=== PATIENT | female | born 1950 | race Two or more races ===

== ENCOUNTER 2023-05-10 12:00 | Emergency (ER) | payer MEDICARE, MEDICAID ==
[~2023-05-10] VITALS: Ht 152.4 cm; Wt 75.0 kg
[2023-05-10 13:10] LABS: Basophils # (auto) 0.1 10 ^3/uL (0-0.2); Basophils % (auto) 0.9 % (0.0-2.0); Eosinophils # (auto) 0.2 10 ^3/uL (0-0.8); Eosinophils % (auto) 1.6 % (0.0-7.0); Hemoglobin 13.5 g/dL (12.2-16.2); Lymphocytes # (auto) 1.9 10 ^3/uL (0.4-5.4); Lymphocytes % (auto) 17.7 % (10.0-50.0); Mean Corpuscular Hemoglobin 27.2 pg (28.0-32.0); Mean Corpuscular Volume 82.6 fL (80.0-100.0); Monocytes # (auto) 0.7 10 ^3/uL (0-1.3); Monocytes % (auto) 6.7 % (0.0-12.0); Neutrophils # (auto) 7.7 10 ^3/uL (1.6-8.6); Neutrophils % (auto) 73.1 % (37.0-80.0); Red Blood Cells 4.97 10^6/uL (4.0-5.20); Red Cell Distribution Width 13.8 % (11.8-14.3); White Blood Cell 10.5 10^3/uL (4.4-10.8)
[2023-05-10] MEDS: PANTOPRAZOLE 40 MG/10 ML VIAL INJ IV ONE (13:29)
[2023-05-10] MEDS: SODIUM CHLORIDE 0.9% 500 ML IVB ONE (13:30)
[2023-05-10] MEDS: ONDANSETRON HCL 4 MG/2 ML VIAL IV ONE (13:30)
[2023-05-10 13:34] LABS: Alanine Aminotransferase 17 U/L (7-40); Albumin 4.3 g/dL (3.2-4.8); Alkaline Phosphatase 90 U/L (46-116); Anion Gap 7 (5-15); Aspartate Aminotransferase 16 U/L (13-40); BUN/Creatinine Ratio 24.1 (10.0-20.0); Bilirubin, Total 0.4 mg/dL (0.2-1.0); Blood Urea Nitrogen 34 mg/dL (9-23); Calcium 9.7 mg/dL (8.7-10.4); Carbon Dioxide 28 mmol/L (20-30); Chloride 97 mmol/L (98-107); Lipase 45 U/L (12-53); Potassium 4.6 mmol/L (3.5-5.1); Sodium 132 mmol/L (136-145); Total Protein 7.3 g/dL (5.7-8.2)
[2023-05-10 13:39] LABS: Glucose 430 mg/dL (74-106)
[2023-05-10 13:57] LABS: Urine Bacteria NONE SEEN /hpf (None Seen); Urine Blood Negative /uL (Negative); Urine Clarity Clear (Clear); Urine Color Colorless (Yellow); Urine Protein, UAD Negative (Negative); Urine Specific Gravity 1.024 (1.001-1.035); Urine Urobilinogen Normal (Negative); Urine WBC 5 /hpf (0 - 5)
[2023-05-10] MEDS ORDERED: ZOFR4T PO (14:03)
[2023-05-10] MEDS ORDERED: PANT40TA2 PO (14:03)
[2023-05-10] MEDS: InsuLIN REG 1unit/0.01ml Soln (100units/ml) IV ONE (14:29)
[2023-05-10 14:41] VITALS: BP 158/58; PULSE 64; RESP 17; TEMP 97.7; O2SAT 97
== END 2023-05-10 14:43 | disposition home or self-care (01) ==
LOC: ER 12:00
DX: K29.00 Acute gastritis without bleeding (principal); E11.9 Type 2 diabetes mellitus without complications; E78.5 Hyperlipidemia, unspecified; I10 Essential (primary) hypertension
CPT/HCPCS: 36415; 76705; 80053; 81001; 82962; 83690; 85025; 96361; 96374; 96375; 99285; C9113; J1815; J2405; J7030

== ENCOUNTER 2023-06-30 03:08 | Inpatient (IN) | payer MEDICARE, MEDICAID ==
[~2023-06-30] VITALS: Ht 154.9 cm; Wt 81.0 kg
[2023-06-30] VITALS (7 sets, daily range): BP systolic 137–167; BP diastolic 49–94; PULSE 65–91; RESP 14–72; TEMP 97.9–98.7; O2SAT 90–98
[~2023-06-30 03:08] MED LIST: PANT40TA2 PO; ZOFR4T PO
[2023-06-30 03:31] LABS: Basophils # (auto) 0.1 10 ^3/uL (0-0.2); Basophils % (auto) 0.6 % (0.0-2.0); Eosinophils # (auto) 0.4 10 ^3/uL (0-0.8); Eosinophils % (auto) 4.6 % (0.0-7.0); Hematocrit 34.9 % (36.0-46.0); Hemoglobin 11.4 g/dL (12.2-16.2); Lymphocytes # (auto) 1.3 10 ^3/uL (0.4-5.4); Lymphocytes % (auto) 14.6 % (10.0-50.0); Mean Corpuscular Hemoglobin 26.5 pg (28.0-32.0); Mean Corpuscular Hgb Conc. 32.6 g/dL (32.0-36.0); Mean Corpuscular Volume 81.3 fL (80.0-100.0); Monocytes # (auto) 0.6 10 ^3/uL (0-1.3); Monocytes % (auto) 6.7 % (0.0-12.0); Neutrophils # (auto) 6.7 10 ^3/uL (1.6-8.6); Neutrophils % (auto) 73.5 % (37.0-80.0); Red Blood Cells 4.29 10^6/uL (4.0-5.20); Red Cell Distribution Width 14.8 % (11.8-14.3); White Blood Cell 9.1 10^3/uL (4.4-10.8)
[2023-06-30 03:47] LABS: INR 1.06 (0.9-1.15); Partial Thromboplastin Time 25.6 SEC (24.5-34.5); Prothrombin Time 11.2 sec (9.3-11.8)
[2023-06-30 03:51] LABS: Alanine Aminotransferase 39 U/L (7-40); Albumin 4.2 g/dL (3.2-4.8); Alkaline Phosphatase 116 U/L (46-116); Anion Gap 8 (5-15); Aspartate Aminotransferase 39 U/L (13-40); Blood Urea Nitrogen 29 mg/dL (9-23); Calcium 9.4 mg/dL (8.5-10.1); Carbon Dioxide 24 mmol/L (20-30); Chloride 103 mmol/L (98-107); Glucose 353 mg/dL (74-106); Potassium 4.8 mmol/L (3.5-5.1); Sodium 135 mmol/L (136-145)
[2023-06-30 03:52] LABS: Bilirubin, Total 0.5 mg/dL (0.2-1.0); Total Protein 6.9 g/dL (5.7-8.2)
[2023-06-30] MEDS: cefTRIAXone 1GM/50ML D5W 50 ML IV SCH (05:12)
[2023-06-30] MEDS: SODIUM CHLORIDE 0.9% 1,000 ML IV ONE (05:12)
[2023-06-30] MEDS: methylPREDNISolone SOD SUCC 125 MG/2 ML VL IV ONE (05:19)
[2023-06-30] MEDS: hydrALAZINE HCL 20 MG/ML VL IV ONE (05:21)
[2023-06-30] MEDS: ACETAMINOPHEN 325 MG TAB PO ONE (05:21)
[2023-06-30] MEDS: ALBUTEROL SULF 2.5 MG/0.5ML(0.5%) NEB SOLN HHN ONE (05:30)
[2023-06-30] MEDS: IPRATROPIUM BROM 0.5 MG/2.5ML INH SOL HHN ONE (05:30)
[2023-06-30 05:41] LABS: Base Excess -2.4 mmol/L (-2.0-2.0)
[2023-06-30 06:44] LABS: COVID19 ANTIGEN SOFIA FIA NEGATIVE (NEGATIVE); Rapid Influenza A Negative (Negative); Rapid Influenza B Negative (Negative)
[2023-06-30 07:19] LABS: Urine Bacteria None Seen /hpf (None Seen)
[2023-06-30] MEDS ORDERED: NITROGLYCERIN 0.4 MG SL TAB SL PRN (07:30)
[2023-06-30] MEDS ORDERED: IPRATROPIUM BROM 0.5 MG/2.5ML INH SOL NEB PRN (07:30)
[2023-06-30] MEDS ORDERED: ALBUTEROL SULF 2.5 MG/0.5ML(0.5%) NEB SOLN NEB PRN (07:30)
[2023-06-30] MEDS ORDERED: ACETAMINOPHEN 325 MG TAB PO PRN (07:30)
[2023-06-30] MEDS ORDERED: ONDANSETRON HCL 4 MG/2 ML VIAL IV PRN (07:30)
[2023-06-30] MEDS ORDERED: MORPHINE SULFATE INJ 2 MG/ml SYRG IV PRN (07:30)
[2023-06-30] MEDS ORDERED: HYDROcodone-ACET 5/325MG TAB PO PRN (07:30)
[2023-06-30] MEDS ORDERED: DEXTROSE (50%) 50ML SYRG IV PRN (07:30)
[2023-06-30 07:39] LABS: Urine Blood Negative /uL (Negative); Urine Clarity Clear (Clear); Urine Color Light-Yellow (Yellow); Urine Protein, UAD TRACE (Negative); Urine Specific Gravity 1.015 (1.001-1.035); Urine Urobilinogen Normal (Negative); Urine WBC <1 /hpf (0 - 5); Urine pH 5.5 (5.0-9.0)
[2023-06-30] MEDS: METOPROLOL TARTRATE 1MG/1ML-5ML VIAL IV ONE (07:57)
[2023-06-30] MEDS: NITROGLYCERIN 0.4MG/HR TOPICAL PATCH TD ONE (07:57)
[2023-06-30] MEDS: ENOXAPARIN SOD 100 MG/1 ML SYRINGE SC ONE (08:10)
[2023-06-30] MEDS: FUROSEMIDE 40 MG/4 ML VIAL IV ONE ×2 (08:11→18:45)
[2023-06-30] MEDS: InsuLIN REG 1unit/0.01ml Soln (100units/ml) SC SCH (09:08)
[2023-06-30] MEDS: ACCU-CHEK COMFORT CURVE STRIP VI SCH (09:08)
[2023-06-30] MEDS: FUROSEMIDE 40 MG/4 ML VIAL IV SCH (09:51)
[2023-06-30] MEDS: ASPirin 81 mg TAB PO SCH (10:46)
[2023-06-30] MEDS: amLODIPine BESYLATE 5 MG TAB PO SCH (10:46)
[2023-06-30] MEDS ORDERED: PANT40TA2 PO (12:46)
[2023-06-30] MEDS ORDERED: ASPI81CH59 PO (12:46)
[2023-06-30] MEDS ORDERED: INSU100I4 SC (12:46)
[2023-06-30] MEDS ORDERED: METO1TAB9 PO (12:46)
[2023-06-30] MEDS ORDERED: INSLANTI SC (12:46)
[2023-06-30] MEDS ORDERED: MONT-8 PO (12:46)
[2023-06-30] MEDS: SODIUM CHLOR 0.9% PF (SALINE LOCK) 10ML VIAL/SYR IV SCH (14:48)
[2023-06-30] MEDS: methylPREDNISolone SOD SUCC 40 MG/ML VL IV SCH (15:10)
[2023-06-30] MEDS: amLODIPine BESYLATE 5 MG TAB PO ONE (18:13)
[2023-06-30] MEDS: LOSARTAN POTASSIUM 50 MG TAB PO ONE (18:14)
[2023-06-30 18:37] LABS: Protein, Urine 22.2 mg/dL (0.0-11.9)
[2023-06-30 18:39] LABS: Creatinine, Urine 32.53 mg/dL (30.0-125.0)
[2023-06-30] MEDS: ATORVASTATIN 20 MG TAB PO SCH (21:29)
[2023-06-30] MEDS ORDERED: ATORVASTATIN 20 MG TAB PO SCH (22:00)
[2023-07-01] VITALS (11 sets, daily range): BP systolic 116–148; BP diastolic 37–62; PULSE 75–86; RESP 14–18; TEMP 97.7–98.8; O2SAT 94–99
[2023-07-01] MEDS: FUROSEMIDE 20 MG/2 ML VIAL IV SCH (05:18)
[2023-07-01 06:19] LABS: Basophils # (auto) 0 10 ^3/uL (0-0.2); Eosinophils # (auto) 0 10 ^3/uL (0-0.8); Hemoglobin 11.8 g/dL (12.2-16.2); Neutrophils % (auto) 88.4 % (37.0-80.0)
[2023-07-01 06:24] LABS: Basophils % (auto) 0.1 % (0.0-2.0); Hematocrit 35.6 % (36.0-46.0); Mean Corpuscular Hemoglobin 26.3 pg (28.0-32.0); Mean Corpuscular Volume 79.5 fL (80.0-100.0); Monocytes # (auto) 0.5 10 ^3/uL (0-1.3); Monocytes % (auto) 3.5 % (0.0-12.0); Neutrophils # (auto) 11.6 10 ^3/uL (1.6-8.6); Red Blood Cells 4.48 10^6/uL (4.0-5.20); Red Cell Distribution Width 14.2 % (11.8-14.3); White Blood Cell 13.1 10^3/uL (4.4-10.8)
[2023-07-01 06:44] LABS: Alanine Aminotransferase 28 U/L (7-40); Albumin 4.2 g/dL (3.2-4.8); Alkaline Phosphatase 89 U/L (46-116); Anion Gap 9 (5-15); Aspartate Aminotransferase 18 U/L (13-40); BUN/Creatinine Ratio 27.7 (10.0-20.0); Bilirubin, Total 0.5 mg/dL (0.2-1.0); Blood Urea Nitrogen 31 mg/dL (9-23); Calcium 9.4 mg/dL (8.5-10.1); Carbon Dioxide 26 mmol/L (20-30); Chloride 103 mmol/L (98-107); Glucose 224 mg/dL (74-106); Sodium 138 mmol/L (136-145); Total Protein 6.9 g/dL (5.7-8.2)
[2023-07-01] MEDS: LOSARTAN POTASSIUM 50 MG TAB PO SCH (07:58)
[2023-07-01] MEDS: METOPROLOL SUCCINATE XL 50 MG TAB PO SCH (07:58)
[2023-07-01] MEDS ORDERED: amLODIPine BESYLATE 5 MG TAB PO SCH (10:00)
[2023-07-01] MEDS: hydrALAZINE HCL 20 MG/ML VL IV PRN (12:23)
[2023-07-01] MEDS: InsuLIN REG 1unit/0.01ml Soln (100units/ml) SC ONE (17:32)
[2023-07-01] MEDS: DOCUSATE SOD 100 MG CAP PO PRN (21:20)
[2023-07-02] VITALS (9 sets, daily range): BP systolic 119–167; BP diastolic 43–68; PULSE 73–119; RESP 16–19; TEMP 97.7–98.8; O2SAT 96–100
[2023-07-02 05:45] LABS: Basophils # (auto) 0 10 ^3/uL (0-0.2); Eosinophils # (auto) 0 10 ^3/uL (0-0.8); Mean Corpuscular Hemoglobin 26.2 pg (28.0-32.0); Neutrophils # (auto) 12.7 10 ^3/uL (1.6-8.6); Neutrophils % (auto) 92.2 % (37.0-80.0)
[2023-07-02 05:47] LABS: Hematocrit 34.6 % (36.0-46.0); Hemoglobin 11.3 g/dL (12.2-16.2); Lymphocytes # (auto) 0.9 10 ^3/uL (0.4-5.4); Lymphocytes % (auto) 6.3 % (10.0-50.0); Mean Corpuscular Hgb Conc. 32.7 g/dL (32.0-36.0); Mean Corpuscular Volume 80.1 fL (80.0-100.0); Monocytes # (auto) 0.2 10 ^3/uL (0-1.3); Monocytes % (auto) 1.5 % (0.0-12.0); Red Blood Cells 4.32 10^6/uL (4.0-5.20); Red Cell Distribution Width 14.4 % (11.8-14.3); White Blood Cell 13.7 10^3/uL (4.4-10.8)
[2023-07-02 06:06] LABS: Anion Gap 8 (5-15); Carbon Dioxide 26 mmol/L (20-30); Chloride 101 mmol/L (98-107); Potassium 4.3 mmol/L (3.5-5.1); Sodium 135 mmol/L (136-145)
[2023-07-02 06:07] LABS: Calcium 8.8 mg/dL (8.5-10.1)
[2023-07-02 06:12] LABS: BUN/Creatinine Ratio 33.6 (10.0-20.0); Blood Urea Nitrogen 40 mg/dL (9-23); Glucose 302 mg/dL (74-106)
[2023-07-02] MEDS: INSULIN LANTUS (GLARGINE) 1 /0.01ml (100units/ml) SC ONE (12:42)
[2023-07-02] MEDS: INSULIN LANTUS (GLARGINE) 1 /0.01ml (100units/ml) SC SCH (21:11)
[2023-07-03] VITALS (10 sets, daily range): BP systolic 138–169; BP diastolic 51–57; PULSE 69–76; RESP 17–22; TEMP 97.8–98.4; O2SAT 95–99
[2023-07-03] MEDS: INSULIN LANTUS (GLARGINE) 1 /0.01ml (100units/ml) SC SCH (04:43)
[2023-07-03 05:21] LABS: Chloride 105 mmol/L (98-107); Potassium 3.9 mmol/L (3.5-5.1); Sodium 141 mmol/L (136-145)
[2023-07-03 05:22] LABS: Anion Gap 7 (5-15); Calcium 8.8 mg/dL (8.5-10.1); Carbon Dioxide 29 mmol/L (20-30)
[2023-07-03 05:27] LABS: BUN/Creatinine Ratio 37.9 (10.0-20.0); Blood Urea Nitrogen 47 mg/dL (9-23); Glucose 55 mg/dL (74-106)
[2023-07-03] MEDS: methylPREDNISolone SOD SUCC 40 MG/ML VL IV SCH (08:51)
[2023-07-03] MEDS: FUROSEMIDE 20 MG/2 ML VIAL IV SCH (08:52)
[2023-07-03 09:15] LABS: Hepatitis B Surface Antigen Negative (Negative)
[2023-07-03 09:36] LABS: Hepatitis C Antibody Negative (Negative)
[2023-07-04] MEDS ORDERED: DEXTROSE (50%) 50ML SYRG IV PRN
[2023-07-04] MEDS: InsuLIN REG 1unit/0.01ml Soln (100units/ml) SC SCH
[2023-07-04 01:00] VITALS: BP 138/60; PULSE 74; RESP 19; TEMP 98.2; O2SAT 96
[2023-07-04 05:00] VITALS: BP 140/43; PULSE 62; RESP 19; TEMP 98.3; O2SAT 94
[2023-07-04 05:34] LABS: Chloride 104 mmol/L (98-107); Potassium 3.9 mmol/L (3.5-5.1); Sodium 139 mmol/L (136-145)
[2023-07-04 05:35] LABS: Anion Gap 6 (5-15); Basophils # (auto) 0 10 ^3/uL (0-0.2); Carbon Dioxide 29 mmol/L (20-30); Eosinophils # (auto) 0.1 10 ^3/uL (0-0.8); Eosinophils % (auto) 1.3 % (0.0-7.0); Hemoglobin 11.8 g/dL (12.2-16.2); Monocytes # (auto) 1.1 10 ^3/uL (0-1.3)
[2023-07-04 05:36] LABS: Calcium 8.5 mg/dL (8.7-10.4)
[2023-07-04 05:40] LABS: BUN/Creatinine Ratio 43.9 (10.0-20.0); Blood Urea Nitrogen 43 mg/dL (9-23); Glucose 115 mg/dL (74-106); Hematocrit 36.1 % (36.0-46.0); Lymphocytes # (auto) 2.2 10 ^3/uL (0.4-5.4); Lymphocytes % (auto) 19.1 % (10.0-50.0); Mean Corpuscular Hemoglobin 26.1 pg (28.0-32.0); Mean Corpuscular Hgb Conc. 32.6 g/dL (32.0-36.0); Mean Corpuscular Volume 80.2 fL (80.0-100.0); Monocytes % (auto) 9.6 % (0.0-12.0); Neutrophils # (auto) 8.1 10 ^3/uL (1.6-8.6); Red Cell Distribution Width 14.6 % (11.8-14.3); White Blood Cell 11.6 10^3/uL (4.4-10.8)
[2023-07-04 08:00] VITALS: PULSE 64
[2023-07-04 08:33] VITALS: BP 118/40; PULSE 65; RESP 20; TEMP 98; O2SAT 97
[2023-07-04] MEDS ORDERED: POTA-228 PO (10:06)
[2023-07-04] MEDS ORDERED: FURO1TAB31 PO (10:06)
[2023-07-04] MEDS ORDERED: LOSA-534 PO (10:06)
[2023-07-04] MEDS ORDERED: ATOR20TA50 PO (10:06)
[2023-07-04] MEDS ORDERED: EMPA1TAB PO (10:06)
[2023-07-04] MEDS ORDERED: APIX5TAB PO (10:06)
[2023-07-04 10:57] VITALS: O2SAT 98
[2023-07-04] MEDS ORDERED: SERT-206 PO (11:11)
[2023-07-04 12:59] VITALS: BP 124/49; PULSE 72; RESP 19; TEMP 98.4; O2SAT 96
== END 2023-07-04 13:07 | disposition home or self-care (01) | DRG 177 ==
LOC: ER 03:08 → TELE 07:39 → TELE-E-ADS 10:44 → TELE-CENTR 18:42
PROVIDERS: ADMIT Nurse Practitioner Family; ATTEND Internal Medicine
DX: J15.69 Pneumonia due to other Gram-negative bacteria (principal); I50.33 Acute on chronic diastolic (congestive) heart failure; J96.01 Acute respiratory failure with hypoxia; N17.0 Acute kidney failure with tubular necrosis; I13.0 Hypertensive heart and chronic kidney disease with heart failure and stage 1 through stage 4 chronic kidney disease, or unspecified chronic kidney disease; I16.1 Hypertensive emergency; D68.69 Other thrombophilia; E11.65 Type 2 diabetes mellitus with hyperglycemia; E11.22 Type 2 diabetes mellitus with diabetic chronic kidney disease; E66.9 Obesity, unspecified; N18.31 Chronic kidney disease, stage 3a; E78.5 Hyperlipidemia, unspecified; I25.10 Atherosclerotic heart disease of native coronary artery without angina pectoris; I48.0 Paroxysmal atrial fibrillation; D72.829 Elevated white blood cell count, unspecified; Z68.33 Body mass index [BMI] 33.0-33.9, adult; Z95.1 Presence of aortocoronary bypass graft; Z79.01 Long term (current) use of anticoagulants; Z79.4 Long term (current) use of insulin; Z79.84 Long term (current) use of oral hypoglycemic drugs; Z79.899 Other long term (current) drug therapy; Z20.822 Contact with and (suspected) exposure to COVID-19
CPT/HCPCS: 36415; 36600; 71045; 76775; 78582; 80048; 80053; 81001; 82570; 82805; 82962; 83605; 83735; 83880; 84156; 84300; 84443; 84484; 85025; 85379; 85610; 85730; 86803; 87040; 87340; 87426; 87804; 93005; 93306; 94640; G0378; J1815

== ENCOUNTER 2024-11-28 07:02 | Outpatient (CLI) | payer MEDICARE, OTHER ==
[~2024-11-28] VITALS: Ht 154.9 cm; Wt 76.2 kg
[~2024-11-28 07:02] MED LIST changes: +APIX5TAB PO; +ASPI81CH59 PO; +ATOR20TA50 PO; +EMPA1TAB PO; +FURO1TAB31 PO; +INSLANTI SC; +INSU100I4 SC; +LOSA-534 PO; +METO1TAB9 PO; +MONT-8 PO; +POTA-228 PO; +SERT-206 PO; -ZOFR4T PO
[2024-11-28] MEDS: REGADENOSON 0.4 MG/5 ML SYRG IV ONE ×2 (08:41)
--- NOTE | 2024-12-02 08:51 | DVHSR ---
APPROVED REPORT Exam: Nuclear Stress Test Indication: SOB BMI: 0 Stress Test Details Stress Test: Pharmacologic stress testing performed using 0.4 mg of regadenoson per 5 mL given IV ov er 10 seconds. HR Resting HR: 75 bpmMax Heart Rate (APMHR): 145.080373 bpm Max HR Achieved: 130 bpmTarget HR (85% APMHR): 123.495688 bpm % of APMHR: 89.66 Recovery HR: 84 bpm BP Resting BP: 182/61 mmHg Recovery BP: 154/67 mmHg ECG Resting ECG: Sinus Rhythm Clinical Reason for Termination: Completed protocol Nurse Comments Recieved pt. from [employer]. A/Ox4 on RA. Connected to property assessment monitor, VS stable. Rt IV flushes well. Reviewed POC. Pt. verbalized understanding of procedure including risks and side effects, agrees for stress testing. Lexiscan stress test performed per protocol. [employer] tech administered Cardiolite. Pt. tolerated well . Pt. stable, no change on exam. VS returned to baseline. Transferred to [employer] via wheelchair w/ te ch. Stress ECG Conclusion lvef 69% normal perfusion scan no severe ischemia noted NM EXAM: Myocardial Perfusion REST/STRESS Imaging Protocol: Rest Tc-99m/Stress Tc-99m 1 day Resting Data Rest SPECT myocardial perfusion imaging was performed in supine position 45 minutes following the int ravenous injection of 9.1 mCi of Tc-99m Sestamibi. Time of rest injection: 729 Date: 11/28/2024 Time of rest imagin Date: 11/28/2024 Administration Route: IV Administration Site: Right Arm Pharmacologic Stress Pharmacologic stress test was performed by injecting Regadenoson 0.4 mg IV push followed by the intra venous injection of 30.1 mCi of Tc-99m Sestamibi. Time of stress injection: 843 Time of stress imagin Administration Route: IV Administration Site: Left AC Gated Stress SPECT was performed 60 minutes after stress injection. The images were gated to evaluate regional wall motion and calculate left ventricular ejection fracti on. Stress only was performed in the Supine position. Nuclear Conclusion Nuclear Findings: negative for ischemia lvef 69% normal perfusion scan no severe ischemia noted
== END 2024-11-28 17:00 | disposition home or self-care (01) ==
LOC: XYW 07:02
PROVIDERS: ATTEND Specialist
DX: I11.0 Hypertensive heart disease with heart failure (principal); I50.9 Heart failure, unspecified; I25.10 Atherosclerotic heart disease of native coronary artery without angina pectoris; R06.02 Shortness of breath
CPT/HCPCS: 78452; 93017; A9500; J2785